=== PATIENT | female | born 1935 | race Caucasian/White ===

== ENCOUNTER 2017-11-20 00:06 | Emergency (ER) | payer OTHER, MEDICARE ==
[~2017-11-20] VITALS: Ht 149.9 cm; Wt 44.5 kg
[~2017-11-20 00:06] MED LIST: ADVIL,NUPRIN,M200 MG PO; ALEVE220 MG PO; CALCIUM 500 WI1 EAC1 PO; CALCIUM 600+D1 EACH PO; CALCIUM-MAGNES1 EAC4 PO; CIPRO500 MG PO; CO Q-10100 MG PO; COLACE100 MG PO; COQ-10100 MG PO; CRANBERRY CAPS PO; CRANBERRY300 MG PO; CRANBERRY500 MG PO; FLEXERIL10 MG PO; IBUPROFEN200 M1 PO; INDERAL40 MG PO; INDERAL80 MG PO; MIRALAX17 GM PO; MOBIC7.5 MG PO; MS CONTIN,ORAMO60 MG PO; NEURONTIN300 MG PO; OMEGA 3 1,0001 EACH PO; OMEGA-31000 M1 PO; OMEPRAZOLE20 M2 PO; OXYCODONE HCL10 MG PO; OXYCODONE5 MG PO; OXYCONTIN20 MG PO; PAXIL20 MG PO; PERCOCET 5/31 TABLET PO; PERI-COLACE TA1 EACH PO; PERICOLACE PO; RECLAST5 MG/100 M IV; SYNTHROID112 MCG PO; SYNTHROID125 MCG PO; TURMERIC500 MG PO; TYLENOL WITH C1 EACH PO; UNISOM SLEEP AI25 MG PO; VITAMIN B-12500 MC2 PO; VITAMIN B12-FO1 EACH PO; VITAMIN D2000 UNIT PO; VITAMIN D31000 UNI2 PO; VITAMIN D32000 UNIT PO
[2017-11-20 02:23] VITALS: BP 156/83
== END 2017-11-20 02:24 | disposition home or self-care (01) ==
LOC: EME 00:06
DX: H57.11 Ocular pain, right eye (principal); R51 Headache; K21.9 Gastro-esophageal reflux disease without esophagitis; E03.9 Hypothyroidism, unspecified; F32.9 Major depressive disorder, single episode, unspecified; Z88.8 Allergy status to other drugs, medicaments and biological substances; Z79.891 Long term (current) use of opiate analgesic
CPT/HCPCS: 70450

== ENCOUNTER 2018-01-01 07:01 | Emergency (ER) | payer OTHER, MEDICARE ==
[~2018-01-01] VITALS: Ht 149.9 cm; Wt 46.9 kg
[2018-01-01 09:14] VITALS: BP 153/67
== END 2018-01-01 09:15 | disposition home or self-care (01) ==
LOC: EME 07:01
DX: M79.661 Pain in right lower leg (principal); E03.9 Hypothyroidism, unspecified; G89.29 Other chronic pain; M54.9 Dorsalgia, unspecified; M41.9 Scoliosis, unspecified; M81.0 Age-related osteoporosis without current pathological fracture; K21.9 Gastro-esophageal reflux disease without esophagitis; F32.9 Major depressive disorder, single episode, unspecified; Z98.1 Arthrodesis status; Z90.49 Acquired absence of other specified parts of digestive tract; Z88.8 Allergy status to other drugs, medicaments and biological substances; Z91.030 Bee allergy status
CPT/HCPCS: 93971; 99281; 99283

== ENCOUNTER 2018-05-06 10:51 | Emergency (ER) | payer OTHER, MEDICARE ==
[~2018-05-06] VITALS: Ht 149.9 cm; Wt 46.5 kg
[2018-05-06] MEDS ORDERED: LIDODERM 5% P1 PATCH TD (12:06)
[2018-05-06] MEDS ORDERED: FLEXERIL10 MG PO (12:06)
[2018-05-06 12:21] VITALS: BP 124/69
== END 2018-05-06 12:21 | disposition home or self-care (01) ==
LOC: EME 10:51
DX: S16.1XXA Strain of muscle, fascia and tendon at neck level, initial encounter (principal); X58.XXXA Exposure to other specified factors, initial encounter; M62.838 Other muscle spasm; M50.30 Other cervical disc degeneration, unspecified cervical region; M41.9 Scoliosis, unspecified; E03.9 Hypothyroidism, unspecified; M85.80 Other specified disorders of bone density and structure, unspecified site; M81.0 Age-related osteoporosis without current pathological fracture; K21.9 Gastro-esophageal reflux disease without esophagitis; F32.9 Major depressive disorder, single episode, unspecified; Z98.1 Arthrodesis status; Z88.8 Allergy status to other drugs, medicaments and biological substances; Z91.030 Bee allergy status
CPT/HCPCS: 72040; 99281; 99284